=== PATIENT | male | born 1995 | race Two or more races ===

== ENCOUNTER 2020-11-21 05:05 | Emergency (ER) | payer MEDICAID ==
[~2020-11-21] VITALS: Ht 170.2 cm; Wt 64.0 kg
[2020-11-21] MEDS ORDERED: IBUP-2028 PO (06:59)
[2020-11-21] MEDS ORDERED: ACETAMINOPHEN 325MG TABLET PO ONE (07:00)
[2020-11-21] MEDS ORDERED: IBUPROFEN 800MG TABLET PO ONE (07:00)
[2020-11-21 07:46] VITALS: BP 128/70
== END 2020-11-21 07:36 | disposition home or self-care (01) ==
LOC: ER 05:05
DX: M54.9 Dorsalgia, unspecified (principal); Z98.890 Other specified postprocedural states
CPT/HCPCS: 99283